=== PATIENT | male | born 1970 | race Caucasian/White ===

== ENCOUNTER 2024-10-11 19:42 | Inpatient (IN) | payer MEDICAID, OTHER ==
--- NOTE | 2024-10-11 20:54 | ED ---
General Adult HPI - General Source: patient, police, RN notes reviewed, old records reviewed Mode of arrival: ambulatory Limitations: no limitations <Herson Lieberman - Last Filed: 10/11/24 22:59> <Lissette Jorgensen - Last Filed: 10/12/24 05:04> - General Chief complaint: Psychiatric Symptoms Stated complaint: Petition-Suicidal Time Seen by Provider: 10/11/24 20:35 - History of Present Illness Initial comments: Patient is a 54-year-old male who presents emergency department complaining of suicidal ideations. Patient was petitioned by police. Petition states "elaina stated that he has suicidal thoughts due to the multiple recent deaths in his family. Elaina also stated he has not eaten in 5 days and struggles to sleep." Patient does endorse suicidal ideations. Has no other acute complaints. Was previously on medications however stopped taking all of them. Denies any alcohol abuse. Denies any drug abuse. Presents for further evaluation at this time. Has no other acute complaints at this time. (Herson Lieberman) - Related Data Home Medications Medication Instructions Recorded Confirmed No Known Home Medications 10/11/24 10/11/24 Allergies Allergy/AdvReac Type Severity Reaction Status Date / Time No Known Allergies Allergy Verified 10/11/24 20:54 Review of Systems ROS Other: All systems not noted in ROS Statement are negative. <Herson Lieberman - Last Filed: 10/11/24 22:59> ROS Other: All systems not noted in ROS Statement are negative. <Lissette Jorgensen - Last Filed: 10/12/24 05:04> ROS Statement: Those systems with pertinent positive or pertinent negative responses have been documented in the HPI. Review of Systems: CONST: Denies fever EYES: Denies blurry vision ENT: Denies nasal congestion C/V: Denies Chest pain RESP: Denies shortness of breath GI: Denies abdominal pain : Denies dysuria SKIN: Denies rash. MSK: Denies joint pain. NEURO: Denies headache (Herson Lieberman) Past Medical History Past Medical History: No Reported History History of Any Multi-Drug Resistant Organisms: None Reported Past Surgical History: No Surgical Hx Reported Past Psychological History: No Psychological Hx Reported Smoking Status: Current every day smoker Past Alcohol Use History: None Reported Past Drug Use History: Marijuana, Opiates <Herson Lieberman - Last Filed: 10/11/24 22:59> General Exam Limitations: no limitations <MioHerson - Last Filed: 10/11/24 22:59> - General Exam Comments Initial Comments: General: Appears in no acute distress. HEAD: Normal with no signs of head trauma. EYES: EOMI. ENT: Hearing grossly intact. RESPIRATORY: No respiratory distress. C/V: Regular rate and rhythm. ABD: Abdomen is nondistended. EXT: No obvious deformity. SKIN: No rashes or lesions observed on exposed skin. NEURO: Alert and oriented. (MioHerson) Course Vital Signs 10/11/24 19:51 Temperature 98.4 F Pulse Rate 94 Respiratory 16 Rate Blood Pressure 136/88 O2 Sat by Pulse 99 Oximetry Procedures - Restraint - Face to Face Restraint Occurrence 1 Patient's Immediate Situation: Endangers self safety, Endangers others' safety, Endangers staff safety, Violent behavior Patient's Reaction to the Intervention: Aggressive, Combative, Resistive to care Patient's Medical & Behavioral Condition: Agitated, Manic Need to Continue or Terminate Restraint or Seclusion: Continue Face to Face Eval of Restraint Date: 10/12/24 Face to Face Eval of Restraint Time: 04:35 <Lissette Jorgensen - Last Filed: 10/12/24 05:04> Medical Decision Making - Lab Data Result diagrams: 10/11/24 21:50 10/11/24 21:50 <MioHerson - Last Filed: 10/11/24 22:59> - Lab Data Result diagrams: 10/11/24 21:50 10/11/24 21:50 <Lissette Jorgensen - Last Filed: 10/12/24 05:04> - Medical Decision Making Was pt. sent in by a medical professional or institution (, PA, AUTO DISMANTLER, urgent care, hospital, or correction...) When possible be specific @ -No Did you speak to anyone other than the patient for history (EMS, parent, family, police, friend...)? What history was obtained from this source @ -No Did you review nursing and triage notes (agree or disagree)? Why? @ -I reviewed and agree with nursing and triage notes Were old charts reviewed (outside hosp., previous admission, EMS record, old EKG, old radiological studies, urgent care reports/EKG's, correction records)? Report findings @ -Reviewed petition provided by police regarding patient suicidal thoughts. Differential Diagnosis (chest pain, altered mental status, abdominal pain women, abdominal pain men, vaginal bleeding, weakness, fever, dyspnea, syncope, headache, dizziness, GI bleed, back pain, seizure, CVA, palpatations, mental health, musculoskeletal)? @ -Differential Mental Health Depression, anxiety, bipolar, psychosis, schizophrenia, borderline personality, situational depression, adjustment disorder, behavioral disorder, brain tumor, malingering, substance abuse, encephalopathy, medication reaction, dementia, hypothyroidism, degenerative neurologic disorder, lupus.... This is not meant to be all-inclusive list EKG interpreted by me (3pts min.). @ -None done X-rays interpreted by me (1pt min.). @ -None done CT interpreted by me (1pt min.). @ -None done U/S interpreted by me (1pt. min.). @ -None done What testing was considered but not performed or refused? (CT, X-rays, U/S, labs)? Why? @ -None What meds were considered but not given or refused? Why? @ -None Did you discuss the management of the patient with other professionals (professionals i.e. , PA, AUTO DISMANTLER, lab, RT, psych nurse, social scientist, nuclear engineering technician, teacher, learning and development officer, case operator)? Give summary @ -No Was smoking cessation discussed for >3mins.? @ -No Was critical care preformed (if so, how long)? @ -No Were there social determinants of health that impacted care today? How? (Homelessness, low income, unemployed, alcoholism, drug addiction, transportation, low edu. Level, literacy, decrease access to med. care, senior living, rehab)? @ -No Was there de-escalation of care discussed even if they declined (Discuss DNR or withdrawal of care, Hospice)? DNR status @ -No What co-morbidities impacted this encounter? (DM, HTN, Smoking, COPD, CAD, Cancer, CVA, ARF, Chemo, Hep., AIDS, mental health diagnosis, sleep apnea, morbid obesity)? @ -None Was patient admitted / discharged? Hospital course, mention meds given and route, prescriptions, significant lab abnormalities, going to OR and other pertinent info. @ -Patient presents with suicidal ideation with a plan to hang himself. Denies any acute complaints at this time. Presents for further evaluation of mental health evaluation. Patient was petitioned by police. Vital signs are within acceptable limits. BAT is 0. UDS is pending. COVID swab obtained. At this time, patient is medically cleared for evaluation by psychiatry. Disposition pending psychiatric evaluation. EPS notified of the consult. Suicide precautions placed. Sitter was ordered. EPS evaluated patient determined that he does meet inpatient criteria. Recommended admission for psychiatric care. Patient does require transfer for inpatient psych. Clinical certificate completed by myself. Laboratory studies ordered for the patient returned unremarkable except for positive cocaine and marijuana on the UDS. Patient is pending placement. Undiagnosed new problem with uncertain prognosis? @ -No Drug Therapy requiring intensive monitoring for toxicity (Heparin, Nitro, Insulin, Cardizem)? @ -No Were any procedures done? @ -No Diagnosis/symptom? @ -Suicidal ideations, suicide plan Acute, or Chronic, or Acute on Chronic? @ -Acute Uncomplicated (without systemic symptoms) or Complicated (systemic symptoms)? @ -Complicated Side effects of treatment? @ -None Exacerbation, Progression, or Severe Exacerbation] @ -No Poses a threat to life or bodily function? @ -Yes (Herson Lieberman) - Lab Data Lab Results 10/11/24 10/11/24 10/11/24 Range/Units 20:42 20:42 21:38 WBC (3.8-10.6) k/uL RBC (4.30-5.90) m/uL Hgb (13.0-17.5) gm/dL Hct (39.0-53.0) % MCV (80.0-100.0) fL MCH (25.0-35.0) pg MCHC (31.0-37.0) g/dL RDW (11.5-15.5) % Plt Count (150-450) k/uL MPV Neutrophils % % Lymphocytes % % Monocytes % % Eosinophils % % Basophils % % Neutrophils # (1.3-7.7) k/uL Lymphocytes # (1.0-4.8) k/uL Monocytes # (0-1.0) k/uL Eosinophils # (0-0.7) k/uL Basophils # (0-0.2) k/uL Sodium (137-145) mmol/L Potassium (3.5-5.1) mmol/L Chloride (98-107) mmol/L Carbon Dioxide (22-30) mmol/L Anion Gap mmol/L BUN (9-20) mg/dL Creatinine (0.66-1.25) mg/dL Est GFR (CKD-EPI)AfAm (>60 ml/min/1.73 sqM) Est GFR (CKD-EPI)NonAf (>60 ml/min/1.73 sqM) Glucose (74-99) mg/dL Calcium (8.4-10.2) mg/dL Total Bilirubin (0.2-1.3) mg/dL AST (17-59) U/L ALT (4-49) U/L Alkaline Phosphatase (38-126) U/L Total Protein (6.3-8.2) g/dL Albumin (3.5-5.0) g/dL Urine Color Colorless Urine Appearance Clear (Clear) Urine pH 6.5 (5.0-8.0) Ur Specific [place] 1.002 (1.001-1.035) Urine Protein Negative (Negative) Urine Glucose (UA) Negative (Negative) Urine Ketones Negative (Negative) Urine Blood Negative (Negative) Urine Nitrite Negative (Negative) Urine Bilirubin Negative (Negative) Urine Urobilinogen <2.0 (<2.0) mg/dL Ur Leukocyte Esterase Negative (Negative) Urine Opiates Screen Not Detected (NotDetected) Ur Oxycodone Screen Not Detected (NotDetected) Urine Methadone Screen Not Detected (NotDetected) Ur Barbiturates Screen Not Detected (NotDetected) U Tricyclic Antidepress Not Detected (NotDetected) Ur Phencyclidine Scrn Not Detected (NotDetected) Ur Amphetamines Screen Not Detected (NotDetected) U Methamphetamines Scrn Not Detected (NotDetected) U Benzodiazepines Scrn Not Detected (NotDetected) Urine Cocaine Screen Detected H (NotDetected) U Marijuana (THC) Screen Detected H (NotDetected) SARS-CoV-2 (PCR) Not Detected (Not Detectd) 10/11/24 10/11/24 Range/Units 21:50 21:50 WBC 9.0 (3.8-10.6) k/uL RBC 5.12 (4.30-5.90) m/uL Hgb 15.3 (13.0-17.5) gm/dL Hct 46.7 (39.0-53.0) % MCV 91.1 (80.0-100.0) fL MCH 29.8 (25.0-35.0) pg MCHC 32.7 (31.0-37.0) g/dL RDW 12.6 (11.5-15.5) % Plt Count 375 (150-450) k/uL MPV 9.1 Neutrophils % 69 % Lymphocytes % 21 % Monocytes % 6 % Eosinophils % 2 % Basophils % 1 % Neutrophils # 6.2 (1.3-7.7) k/uL Lymphocytes # 1.9 (1.0-4.8) k/uL Monocytes # 0.5 (0-1.0) k/uL Eosinophils # 0.2 (0-0.7) k/uL Basophils # 0.1 (0-0.2) k/uL Sodium 140 (137-145) mmol/L Potassium 3.8 (3.5-5.1) mmol/L Chloride 104 (98-107) mmol/L Carbon Dioxide 24 (22-30) mmol/L Anion Gap 12 mmol/L BUN 7 L (9-20) mg/dL Creatinine 1.03 (0.66-1.25) mg/dL Est GFR (CKD-EPI)AfAm >90 (>60 ml/min/1.73 sqM) Est GFR (CKD-EPI)NonAf 82 (>60 ml/min/1.73 sqM) Glucose 110 H (74-99) mg/dL Calcium 10.4 H (8.4-10.2) mg/dL Total Bilirubin 0.5 (0.2-1.3) mg/dL AST 20 (17-59) U/L ALT 18 (4-49) U/L Alkaline Phosphatase 128 H (38-126) U/L Total Protein 8.3 H (6.3-8.2) g/dL Albumin 4.8 (3.5-5.0) g/dL Urine Color Urine Appearance (Clear) Urine pH (5.0-8.0) Ur Specific [place] (1.001-1.035) Urine Protein (Negative) Urine Glucose (UA) (Negative) Urine Ketones (Negative) Urine Blood (Negative) Urine Nitrite (Negative) Urine Bilirubin (Negative) Urine Urobilinogen (<2.0) mg/dL Ur Leukocyte Esterase (Negative) Urine Opiates Screen (NotDetected) Ur Oxycodone Screen (NotDetected) Urine Methadone Screen (NotDetected) Ur Barbiturates Screen (NotDetected) U Tricyclic Antidepress (NotDetected) Ur Phencyclidine Scrn (NotDetected) Ur Amphetamines Screen (NotDetected) U Methamphetamines Scrn (NotDetected) U Benzodiazepines Scrn (NotDetected) Urine Cocaine Screen (NotDetected) U Marijuana (THC) Screen (NotDetected) SARS-CoV-2 (PCR) (Not Detectd) Disposition <Herson Lieberman - Last Filed: 10/11/24 22:59> <Lissette Jorgensen - Last Filed: 10/12/24 05:04> Clinical Impression: Suicidal ideation, Planning to commit suicide Disposition: TRANSFER TO PSYCH HOSP/UNIT Condition: Stable Referrals: None,Stated [Primary Care Provider] - 1-2 days
[2024-10-11 21:04] LABS: Amphetamine Screen,Urine Not Detected (NotDetected); Barbiturate Screen,Urine Not Detected (NotDetected); Benzodiazepines Screen,Urine Not Detected (NotDetected); Cocaine Screen,Urine Detected (NotDetected); Methadone Screen, Urine Not Detected (NotDetected); Opiate Screen,Urine Not Detected (NotDetected); Oxycodone Screen, Urine Not Detected (NotDetected); Phencyclidine Screen,Urine Not Detected (NotDetected); Tricyclic Antidepressant,Urine Not Detected (NotDetected); Urn Cannabinoid Scrn Detected (NotDetected)
[2024-10-11 21:58] LABS: Basophils # (A) 0.1 k/uL (0-0.2); Basophils % (A) 1 %; Eosinophils # (A) 0.2 k/uL (0-0.7); Eosinophils % (A) 2 %; HCT 46.7 % (39.0-53.0); HGB 15.3 gm/dL (13.0-17.5); Lymphocytes # (A) 1.9 k/uL (1.0-4.8); Lymphocytes % (A) 21 %; MCH 29.8 pg (25.0-35.0); MCHC 32.7 g/dL (31.0-37.0); MCV 91.1 fL (80.0-100.0); Mean Platelet Volume 9.1; Monocytes # (A) 0.5 k/uL (0-1.0); Monocytes % (A) 6 %; Neutrophils # (A) 6.2 k/uL (1.3-7.7); Neutrophils % (A) 69 %; Platelet Count 375 k/uL (150-450); RBC 5.12 m/uL (4.30-5.90); RDW 12.6 % (11.5-15.5)
[2024-10-11 22:07] LABS: Appearance,Urine Clear (Clear); Bilirubin,Urine Negative (Negative); Blood,Urine Negative (Negative); Color,Urine Colorless; Glucose,Urine (UA) Negative (Negative); Ketones,Urine Negative (Negative); Leukocyte Esterase,Urine Negative (Negative); Nitrite,Urine Negative (Negative); PH, Urine 6.5 (5.0-8.0); Protein,Urine Negative (Negative); Specific Gravity,Urine 1.002 (1.001-1.035); Urobilinogen,Urine <2.0 mg/dL (<2.0)
[2024-10-11 22:08] LABS: ALT 18 U/L (4-49); AST 20 U/L (17-59); African American GFR (CKD) >90 (>60 ml/min/1.73 sqM); Albumin 4.8 g/dL (3.5-5.0); Alkaline Phosphatase 128 U/L (38-126); Anion Gap 12 mmol/L; Blood Urea Nitrogen 7 mg/dL (9-20); Calcium 10.4 mg/dL (8.4-10.2); Carbon Dioxide 24 mmol/L (22-30); Chloride 104 mmol/L (98-107); Glucose 110 mg/dL (74-99); Non-African American GFR(CKD) 82 (>60 ml/min/1.73 sqM); Potassium 3.8 mmol/L (3.5-5.1); Sodium 140 mmol/L (137-145); Total Bilirubin 0.5 mg/dL (0.2-1.3); Total Protein 8.3 g/dL (6.3-8.2)
[2024-10-11] MEDS: LORazepam 1 MG TAB PO STA (22:31)
[2024-10-12] MEDS: diphenhydrAMINE 50 MG CAP PO STA (01:12)
[2024-10-12] MEDS: LORazepam 1 MG TAB PO STA (02:50)
[2024-10-12] MEDS: ZIPRASIDONE 20 MG VIAL IM STA (04:36)
[2024-10-12] MEDS ORDERED: HALOPERIDOL LACTATE 5 MG/ML 1 ML VIAL IM PRN (13:22)
[2024-10-12] MEDS ORDERED: MAG HYDROX/AL HYDROX/SIMETH 355 ML BOTTLE PO PRN (13:22)
[2024-10-12] MEDS ORDERED: MAGNESIUM HYDROXIDE 2,400 MG/30 ML CUP PO PRN (13:22)
[2024-10-12] MEDS ORDERED: LORazepam 2 MG/ML INJ IM PRN (13:22)
[2024-10-13] MEDS: IBUPROFEN 600 MG TAB PO PRN (01:51)
[2024-10-13] MEDS: haloperidoL 5 MG TAB PO PRN (01:51)
[2024-10-13 10:09] LABS: ALT 15 U/L (4-49); AST 18 U/L (17-59); Albumin 4.2 g/dL (3.5-5.0); Alkaline Phosphatase 91 U/L (38-126); Bilirubin, Delta 0.2 mg/dL (0.0-0.2); Bilirubin,Unconjugated 0.3 mg/dL (0.0-1.1); Total Bilirubin 0.5 mg/dL (0.2-1.3); Total Protein 7.2 g/dL (6.3-8.2)
[2024-10-13] MEDS: NICOTINE 14MG/24HR PATCH TRANSDERM SCH (11:35)
[2024-10-13 13:21] VITALS: BMI 20.7
[2024-10-13] MEDS: SERTRALINE 50 MG TAB PO SCH (13:27)
--- NOTE | 2024-10-13 14:08 | P.HP ---
Psychiatric H&P - . H&P Date: 10/13/24 History & Physical: Allergies Allergy/AdvReac Type Severity Reaction Status Date / Time No Known Allergies Allergy Verified 10/11/24 20:54 Vital Signs Temp 98.6 F 10/12/24 13:55 Pulse 105 H 10/12/24 13:55 Resp 18 10/12/24 13:55 BP 174/88 10/12/24 13:55 Pulse Ox 97 10/12/24 13:55 FiO2 Intake & Output 10/12/24 10/13/24 10/13/24 18:59 06:59 18:59 Weight 58.332 kg Laboratory Last Values WBC 9.0 k/uL (3.8-10.6) 10/11/24 21:50 RBC 5.12 m/uL (4.30-5.90) 10/11/24 21:50 Hgb 15.3 gm/dL (13.0-17.5) 10/11/24 21:50 Hct 46.7 % (39.0-53.0) 10/11/24 21:50 MCV 91.1 fL (80.0-100.0) 10/11/24 21:50 MCH 29.8 pg (25.0-35.0) 10/11/24 21:50 MCHC 32.7 g/dL (31.0-37.0) 10/11/24 21:50 RDW 12.6 % (11.5-15.5) 10/11/24 21:50 Plt Count 375 k/uL (150-450) 10/11/24 21:50 MPV 9.1 10/11/24 21:50 Neutrophils % 69 % 10/11/24 21:50 Lymphocytes % 21 % 10/11/24 21:50 Monocytes % 6 % 10/11/24 21:50 Eosinophils % 2 % 10/11/24 21:50 Basophils % 1 % 10/11/24 21:50 Neutrophils # 6.2 k/uL (1.3-7.7) 10/11/24 21:50 Lymphocytes # 1.9 k/uL (1.0-4.8) 10/11/24 21:50 Monocytes # 0.5 k/uL (0-1.0) 10/11/24 21:50 Eosinophils # 0.2 k/uL (0-0.7) 10/11/24 21:50 Basophils # 0.1 k/uL (0-0.2) 10/11/24 21:50 Sodium 140 mmol/L (137-145) 10/11/24 21:50 Potassium 3.8 mmol/L (3.5-5.1) 10/11/24 21:50 Chloride 104 mmol/L (98-107) 10/11/24 21:50 Carbon Dioxide 24 mmol/L (22-30) 10/11/24 21:50 Anion Gap 12 mmol/L 10/11/24 21:50 BUN 7 mg/dL (9-20) L 10/11/24 21:50 Creatinine 1.03 mg/dL (0.66-1.25) 10/11/24 21:50 Est GFR (CKD-EPI)AfAm >90 (>60 ml/min/1.73 sqM) 10/11/24 21:50 Est GFR (CKD-EPI)NonAf 82 (>60 ml/min/1.73 sqM) 10/11/24 21:50 Glucose 110 mg/dL (74-99) H 10/11/24 21:50 Calcium 10.4 mg/dL (8.4-10.2) H 10/11/24 21:50 Total Bilirubin 0.5 mg/dL (0.2-1.3) 10/13/24 09:19 Conjugated Bilirubin 0.0 mg/dL (0.0-0.3) 10/13/24 09:19 Unconjugated Bilirubin 0.3 mg/dL (0.0-1.1) 10/13/24 09:19 Delta Bilirubin 0.2 mg/dL (0.0-0.2) 10/13/24 09:19 AST 18 U/L (17-59) 10/13/24 09:19 ALT 15 U/L (4-49) 10/13/24 09:19 Alkaline Phosphatase 91 U/L (38-126) 10/13/24 09:19 Total Protein 7.2 g/dL (6.3-8.2) 10/13/24 09:19 Albumin 4.2 g/dL (3.5-5.0) 10/13/24 09:19 TSH 0.445 mIU/L (0.465-4.680) L 10/13/24 09:19 Urine Color Colorless 10/11/24 21:38 Urine Appearance Clear (Clear) 10/11/24 21:38 Urine pH 6.5 (5.0-8.0) 10/11/24 21:38 Ur Specific [place] 1.002 (1.001-1.035) 10/11/24 21:38 Urine Protein Negative (Negative) 10/11/24 21:38 Urine Glucose (UA) Negative (Negative) 10/11/24 21: Urine Ketones Negative (Negative) 10/11/24 21: Urine Blood Negative (Negative) 10/11/24 21: Urine Nitrite Negative (Negative) 10/11/24 21: Urine Bilirubin Negative (Negative) 10/11/24 21: Urine Urobilinogen <2.0 mg/dL (<2.0) 10/11/24 21:38 Ur Leukocyte Esterase Negative (Negative) 10/11/24 21:38 Urine Opiates Screen Not Detected (NotDetected) 10/11/24 20:42 Ur Oxycodone Screen Not Detected (NotDetected) 10/11/24 20:42 Urine Methadone Screen Not Detected (NotDetected) 10/11/24 20:42 Ur Barbiturates Screen Not Detected (NotDetected) 10/11/24 20:42 U Tricyclic Antidepress Not Detected (NotDetected) 10/11/24 20:42 Ur Phencyclidine Scrn Not Detected (NotDetected) 10/11/24 20:42 Ur Amphetamines Screen Not Detected (NotDetected) 10/11/24 20:42 U Methamphetamines Scrn Not Detected (NotDetected) 10/11/24 20:42 U Benzodiazepines Scrn Not Detected (NotDetected) 10/11/24 20:42 Urine Cocaine Screen Detected (NotDetected) H 10/11/24 20:42 U Marijuana (THC) Screen Detected (NotDetected) H 10/11/24 20:42 SARS-CoV-2 (PCR) Not Detected (Not Detectd) 10/11/24 20:42 10/13/24 12:40 IDENTIFYING DATA: Patient is a 54-year-old male, he is , homeless, has 4 kids HPI: Patient presented to the hospital yesterday for psychiatric evaluation on a petition and certificate. According to EPS report "Patient brought self to ER per triage related to suicidal ideation with a plan to hang himself. Patient assessed in ER14 from [id number]. Patient states "I have nothing to live for they are all , I'm going to kill the rest of them". Patient verbalizes his mother and fiance within the last year and he has been increasingly down. Patient denies suicidal ideations to technical proposal writer at time of assessment. Patient verbalizes homicidal ideations towards his stepfather, son, and daughter. Patient refused to give technical proposal writer names at this time. Patient states "My son killed my granddaughter when she was 1 years old", He states his daughter "Wants me so I'm going to kill her first", then states he wants to kill his step father "because he's a scar". Patient verbalizes no alcohol use in 10 years. Patient verbalizes using marijuana, and denies all other substance use. Patient denies legal hx. Patient verbalizes not eating x1 month, states "I've eaten 5 small meals all month". Patient states he sleeps one hour per night. Patient appears disheveled and unkept. Patient verbalizes auditory and visual hallucinations of "my fiance and mother" states they are both but he still hears and sees his fiance and sees his mother but "we don't talk". Patient petitioned by police related to suicidal ideation with a plan to hang himself." Patient was seen today for psychiatric evaluation. Patient was fairly evasive, manipulative at times during conversation. States that he came from [place] about 5 or 6 weeks ago to stay with a friend. Claims that "his roommate and him started using cocaine" and states that he did not want to be a part of it. He claims that he wanted to get to [facility] however he did not know how. He claims that he called the police due to feeling "unsafe". He claims that he was not feeling suicidal however wanted to come to the hospital. He claims that he did not want to return back to the house, was feeling depressed anxious. Claims that his father is a "scar" and has thoughts of harming him however did not state how he is going to do this. He states that "everyone has access to guns" when asked about guns and weapons. Claims that his sleep is been poor appetite has been fair. He was fairly evasive, and guarded. Patient denies any suicidal intent or plan. At this time patient denies any auditory or visual hallucinations. Patient denies any flight of ideas racing thoughts and increased in goal directed behavior. Patient admits to using fentanyl recently. Claims that he smokes marijuana regularly. He was positive for cocaine however claims that it was "probably in the fentanyl". He claims that he also vapes nicotine. PAST PSYCHIATRIC HISTORY: Patient has a history of depression, polysubstance abuse. Patient denies being on any psychiatric medications. Claims that he was previously on Seroquel Adderall Wellbutrin and Xanax in the past. States that he was admitted 2 times in the past for psychiatric reasons about a year and a half ago in [facility]. Patient denies any psychiatric outpatient follow- up. Claims that about 5 years ago he attempted to cut his wrists in a suicide attempt PMH: as per ER note ALLERGIES: as per EMR CHEMICAL DEPENDENCY HISTORY: as per HPI FAMILY PSYCHIATRIC/SUBSTANCE USE HISTORY: Denies SOCIAL HISTORY: Patient was born and raised in [facility]. Claims that he completed high school, states that he is he has 4 kids, he is homeless currently. States that he has been in usp and usp in the past for assault charges about 10 years ago.. MENTAL STATUS EXAM: General Appearance: Patient appears to be short in stature, thin, several tattoos including 1 on his face. Stated age is alert, guarded and manipulative. Patient appears to have poor hygiene and grooming. Behavior: Patient is seated without any agitated behavior. Evasive, guarded Speech: Patient's speech is fluent and nonpressured. Monotone concrete Mood/Affect: Patient reports their mood is depressed anxious, affect is congruent and constricted. Suicidality/Homicidality: Admits to homicidal ideations towards his father, and is not forthcoming with a specific plan. Evasive about guns and weapons. Denies any suicidal ideations intent or plan. Perceptions: Patient denies any visual hallucinations and denies any auditory hallucinations Though content/process: There is no evidence of any delusional thought content and thought process is linear and goal-directed. Sheldon, poverty of content Memory and concentration: AOX3, grossly intact for the purposes of this session. Can spell "WORLD" backwards Judgment and insight: Poor STRENGTHS/WEAKNESSES: strength is that patient is resilient. Weakness is that patient has poor judgment and is impulsive INTELLECT: Average IMPRESSIONS: Depressive disorder unspecified Cocaine use disorder Cannabis use disorder Nicotine dependence Likely antisocial personality disorder PLAN: -Patient is admitted under voluntary status to [facility] for stabilization of psychiatric symptoms and safety. Patient has signed adult voluntary form and medication consent and is placed in patient's chart. -Medications : Seroquel 100 mg nightly for mood stabilization/sleep, Zoloft 50 mg daily for mood/anxiety -Ativan and Haldol PRN for agitation/aggression -Patient was counselled on substance abuse and desired to cut back on use -Patient was informed of the risks, benefits and side effects of the medication and patient verbally consented to taking the medications. Patient signed med consent form and was placed in chart. -Internal Medicine consult to perform medical evaluation and physical. -NRT -nicotine patch -SW on board for discharge planning. Encourage patient to participate in groups to work on coping skills. Will offer patient rehab, make arrangements for Jens 10/13/24 14:07
--- NOTE | 2024-10-13 17:42 | P.MDCNMH ---
History of Present Illness H&P Date: 10/13/24 Chief Complaint: Medical evaluation 54-year-old male with no reported medical history, takes no medications, active smoker, occasional recreational drugs presented for evaluation of mental health. Medicine was consulted for medical management. Patient has no complaints at this time. He says that overall he has been very healthy and has never had any medical issues or need to take any medications. Review of his vitals demonstrated patient who is likely in stage I hypertension with a blood pressure of 138/76, 99% on room air, 96 heart rate. CBC is unremarkable. Basic metabolic panel is unremarkable. Liver function test show elevated alkaline phosphatase is 128. TSH is 0.445. Urinalysis is unremarkable. Urine tox urine is positive for cocaine, marijuana. COVID was negative. Gen: In NAD, non-toxic HEENT: normocephalic, atraumatic, hearing acuity is intant, mucous membranes moist CVS: perfusing all extremities well, no pitting edema, Respiratory: symmetric chest expansion, no accessory muscle use, GI: soft, NTTP, ND, : no suprapubic tenderness, no CVA tenderness MSK/Derm: no rashes, cyanosis Neuro: CN II-XII intact, no motor weakness, Psych: cooperative, euthymic mood, judgment and insight is intact Assessment/plan: Hypertension, stage I -Normally would recommend the initiation of single antihypertensive agent such as amlodipine or lisinopril, however, I defer this to his PCP at this time as it is is not urgent and he needs to establish care in order to follow-up with medication compliance Low TSH -Ordered reflex free T4, touch base with our group if this is elevated or abnormal for further recommendations Thank you for this consult, presleep note for any questions or concerns. Past Medical History Past Medical History: No Reported History History of Any Multi-Drug Resistant Organisms: None Reported Past Surgical History: No Surgical Hx Reported Past Psychological History: No Psychological Hx Reported Smoking Status: Current every day smoker Past Alcohol Use History: None Reported Past Drug Use History: Cocaine, Marijuana, Opiates Medications and Allergies Home Medications Medication Instructions Recorded Confirmed Type No Known Home Medications 10/11/24 10/11/24 History Allergies Allergy/AdvReac Type Severity Reaction Status Date / Time No Known Allergies Allergy Verified 10/11/24 20:54 Physical Exam Osteopathic Statement: *. No significant issues noted on an osteopathic structural exam other than those noted in the History and Physical/Consult. Vitals: Intake and Output 10/13/24 10/13/24 10/13/24 06:59 14:59 22:59 Other: Weight 58.332 kg Cranial Nerve Examination - Cranial Nerves Cranial Nerve II- Optic: Intact Cranial Nerve III- Oculomotor: Intact Cranial Nerve IV- Trochlear: Intact Cranial Nerve V- Trigeminal: Intact Cranial Nerve - Abducens: Intact Cranial Nerve VII- Facial: Intact Cranial Nerve VIII- Auditory: Intact Cranial Nerve IX- Glossopharyngeal: Intact Cranial Nerve X- Vagus: Intact Cranial Nerve XI- Accessory: Intact Cranial Nerve XII- Hypoglossal: Intact Results CBC & Chem 7: 10/11/24 21:50 10/11/24 21:50 Labs: Abnormal Lab Results - Last 24 Hours (Table) 10/13/24 Range/Units 09:19 TSH 0.445 L (0.465-4.680) mIU/L
[2024-10-13] MEDS: QUEtiapine 100 MG TAB PO SCH (20:16)
[2024-10-13] MEDS: ACETAMINOPHEN TAB 325 MG TAB PO PRN (23:57)
[2024-10-14] MEDS: LORazepam 1 MG TAB PO PRN (04:19)
[2024-10-14 08:43] LABS: Chol/HDL Ratio 5.23 Ratio; LDL Cholesterol,Calculated 155.4 mg/dL (0.0-131.0)
[2024-10-14] MEDS: NICOTINE GUM (POLACRILEX) 2 MG GUM BUCCAL PRN (10:09)
--- NOTE | 2024-10-14 10:50 | P.PN ---
Progress Note - Text Progress Note Date: 10/14/24 Interval history: Patient was seen wandering the hallways and was directable and agreeable to s peak with verse writer. He appears to have improvement in hygiene and grooming today. States that he had difficulty sleeping last night and was feeling restless. States that he only slept about 1 or 2 hours late last night. Claims that he feels his mood and anxiety are mildly improving since yesterday. We spoke about other options besides Seroquel and he was agreeable to try Zyprexa tonight. At this time patient denies any suicidal or homicidal ideations intent or plan. Denies any Auditory or visual hallucinations. Patient denies any side effects from the medications and has been compliant with meds. Mental status exam: General Appearance: Patient appears to be short in stature, tattoos, stated age is alert, directable, and cooperative. Behavior: No agitated behavior. Patient is calm and directable less manipulative today Speech: Patient's speech is fluent and nonpressured. Mood/Affect: Mood is improving mildly, affect is congruent and constricted. Suicidality/Homicidality: Patient denies having any suicidal or homicidal ideation intent or plan. Perceptions: Patient denies any auditory or visual hallucinations. Though content/process: There is no evidence of any delusional thought content and thought process is linear and goal-directed. Focused on his symptoms Memory and concentration: AOX3, grossly intact for the purposes of this session Judgment and insight: improving mildly Assessment/Plan: Continue with current diagnosis. Patient continues to meet criteria for inpatient psychiatric admission for symptom stabilization and safety. Patient will be maintained on current psychotropic medication regimen, discontinue Seroquel and replace with Zyprexa for tonight. Monitor for medication compliance and for any psychotropic medication side effects. Will continue to monitor ongoing response to treatment. Encouraged participation in milieu.
[2024-10-14] MEDS: OLANZapine 5 MG TAB PO SCH (20:07)
[2024-10-14] MEDS: traZODone HCL 100 MG TAB PO PRN (22:40)
--- NOTE | 2024-10-15 12:08 | P.PN ---
Progress Note - Text Progress Note Date: 10/15/24 Interval history: Patient was seen in his room this morning was agreeable to speak to chief writer. He claims that he had a difficult time sleeping last night after taking the Zyprexa and also needed trazodone and only got about 2 or 3 hours of sleep. He was agreeable to try higher dose of the medications tonight to help with sleep. Claims that he is doing well besides that, claims that his anxiety mood is improving. Claims that he would like to go to [facility] tomorrow for rehab if they are can accept him and he has a ride. Claims that he is try to go to some groups. Has been eating fairly. At this time patient denies any suicidal or homicidal ideations intent or plan. Denies any Auditory or visual hallucinations. Patient denies any side effects from the medications and has been compliant with meds. Mental status exam: General Appearance: Patient appears to be short in stature, tattoos, stated age is alert, directable, and cooperative. Behavior: No agitated behavior. Patient is calm and directable more cooperative today Speech: Patient's speech is fluent and nonpressured. Mood/Affect: Mood is improving mildly, affect is congruent and constricted. Improving Suicidality/Homicidality: Patient denies having any suicidal or homicidal ideation intent or plan. Perceptions: Patient denies any auditory or visual hallucinations. Though content/process: There is no evidence of any delusional thought content and thought process is linear and goal-directed. Focused on discharge Memory and concentration: AOX3, grossly intact for the purposes of this session Judgment and insight: improving mildly Assessment/Plan: Continue with current diagnosis. Patient continues to meet criteria for inpatient psychiatric admission for symptom stabilization and safety. Patient will be maintained on current psychotropic medication regimen, with the exception of increasing Zyprexa to 10 mg nightly. Will add trazodone 150 mg prn nightly for insomnia. Monitor for medication compliance and for any psychotropic medication side effects. Will continue to monitor ongoing response to treatment. Encouraged participation in milieu. Likely discharge tomorrow to rehab, he will be going to [place].
[2024-10-15] MEDS: traZODone HCL 50 MG TAB PO PRN (22:17)
[2024-10-16 07:06] VITALS: BP 148/73; PULSE 81; RESP 16; TEMP 97.6
--- NOTE | 2024-10-16 11:41 | P.DS ---
Providers Date of admission: 10/12/24 13:18 Expected date of discharge: 10/16/24 Attending physician: Sridhar Middleton MD Consults: 10/12/24 13:22 Consult Physician Routine Consulting Provider: Teena Brenner Consult Reason/Comments: History and Physical New Admission Do you want consulting provider notified?: Yes Primary care physician: Stated None - Discharge Diagnosis(es) (1) Depressive disorder Current Visit: Yes Status: Acute Priority: High (2) Cocaine use disorder Current Visit: Yes Status: Acute Priority: High (3) Cannabis use disorder Current Visit: Yes Status: Acute Priority: Medium (4) Nicotine dependence Current Visit: Yes Status: Acute Priority: Low (5) Personality disorder Current Visit: Yes Status: Acute Priority: Medium Hospital Course: Admission HPI: Admission note was completed by commercial underwriter "Patient is a 54-year-old male, he is , homeless, has 4 kids. Patient presented to the hospital yesterday for psychiatric evaluation on a petition and certificate. According to EPS report "Patient brought self to ER per triage related to suicidal ideation with a plan to hang himself. Patient assessed in ER14 from [id number]. Patient states "I have nothing to live for they are all , I'm going to kill the rest of them". Patient verbalizes his mother and fiance within the last year and he has been increasingly down. Patient denies suicidal ideations to commercial underwriter at time of assessment. Patient verbalizes homicidal ideations towards his stepfather, son, and daughter. Patient refused to give commercial underwriter names at this time. Patient states "My son killed my granddaughter when she was 1 years old", He states his daughter "Wants me so I'm going to kill her first", then states he wants to kill his step father "because he's a scar". Patient verbalizes no alcohol use in 10 years. Patient verbalizes using marijuana, and denies all other substance use. Patient denies legal hx. Patient verbalizes not eating x1 month, states "I've eaten 5 small meals all month". Patient states he sleeps one hour per night. Patient appears disheveled and unkept. Patient verbalizes auditory and visual hallucinations of "my fiance and mother" states they are both but he still hears and sees his fiance and sees his mother but "we don't talk". Patient petitioned by police related to suicidal ideation with a plan to hang himself." Patient was seen today for psychiatric evaluation. Patient was fairly evasive, manipulative at times during conversation. States that he came from [place] about 5 or 6 weeks ago to stay with a friend. Claims that "his roommate and him started using cocaine" and states that he did not want to be a part of it. He claims that he wanted to get to [facility] however he did not know how. He claims that he called the police due to feeling "unsafe". He claims that he was not feeling suicidal however wanted to come to the hospital. He claims that he did not want to return back to the house, was feeling depressed anxious. Claims that his father is a "scar" and has thoughts of harming him however did not state how he is going to do this. He states that "everyone has access to guns" when asked about guns and weapons. Claims that his sleep is been poor appetite has been fair. He was fairly evasive, and guarded. Patient denies any suicidal intent or plan. At this time patient denies any auditory or visual hallucinations. Patient denies any flight of ideas racing thoughts and increased in goal directed behavior. Patient admits to using fentanyl recently. Claims that he smokes marijuana regularly. He was positive for cocaine however claims that it was "probably in the fentanyl". He claims that he also vapes nicotine." Hospital course: Upon admission to the unit patient was directable and agreeable to commence treatment and signed adult voluntary form. Patient got along well with other patients on the unit and followed unit protocol. Patient was compliant with the medications and denied any side effects throughout hospital course. Patient was started on zyprexa increased to dose of 10 mg qhs for sleep/mood stabilization, Zoloft 50 mg daily for mood/anxiety. Trazodone 150 mg nightly as needed for insomnia. Patient spoke of his stressors and engaged in therapy both group and individual. Patient was also seen by medical team for history and physical exam. Throughout the course of the hospitalization patient gradually improved with regards to mood, anxiety, suicidal thoughts, sleep and returned back to their baseline level of functioning. On the day of discharge patient denied any suicidal or homicidal ideations intent or plan denied any auditory or visual hallucinations. Patient endorsed wanting to live for their health and sobriety. The patient denied any access to guns or weapons. Patient denied any paranoia and did not endorse any delusions. Patient does have a significant history of substance abuse and was counseled on abstaining from all substances including alcohol and marijuana. Patient ended up agreeing to inpatient [facility] rehab. Was excepted to [place] for inpatient substance rehab. Patient was also counseled on the medications and need for regular compliance and was encouraged to follow-up with their outpatient appointment for mental health and also for primary care. Mental status exam: General Appearance: Patient appears to be in stature, several tattoos, stated age is alert, pleasant, and cooperative. Patient is in no acute distress and has improved hygiene and grooming Behavior: Patient is calmly seated without any agitated behavior. Speech: Patient's speech is fluent and nonpressured. Mood/Affect: Patient reports their mood is "good", affect is congruent and euthymic. Suicidality/Homicidality: Patient denies having any suicidal or homicidal ideation intent or plan. Perceptions: Patient denies any auditory or visual hallucinations. Though content/process: There is no evidence of any delusional thought content and thought process is linear and goal-directed. More future oriented Memory and concentration: AOX3, grossly intact for the purposes of this session. Can spell "WORLD" backwards correctly. Judgment and insight: Chronically poor, however has improved with guarded prognosis Impression: Depressive disorder unspecified Cocaine use disorder Cannabis use disorder Personality disorder Nicotine dependence Plan: -Continue with discharge today as patient has improved and stabilized psychiatrically and is not currently an imminent threat to themself and/or others. Patient will remain at chronically elevated risk for harm to self and/or others due to their impulsivity and substance abuse. -Continue medications: Zyprexa 10 mg nightly for sleep/mood stabilization, Zoloft 50 mg daily for mood/anxiety, trazodone 150 mg nightly as needed for insomnia. -Patient was counseled on the need for medication compliance and appropriate follow-up at mental health and also primary care for medical issues. Patient verbalized understanding and agreed. -Social work to help coordinate patients discharge today with a ride to rehab. also to ensure safe home environment that guns/weapons are either removed from the home or locked away. Social work also to arrange for patients follow up appointments with [facility] for psychiatric care along with follow up with primary care provider. -Patient counseled on abstaining from recreational drugs and marijuana and alcohol. Was informed/educated on the adverse effects on their physical and mental health. Patient verbally agreed and understood. -Patient was instructed to return to the hospital or seek immediate medical care if their psychiatric or medical symptoms do worsen or reoccur. Allergies Allergy/AdvReac Type Severity Reaction Status Date / Time No Known Allergies Allergy Verified 10/11/24 20:54 Laboratory Results WBC 9.0 k/uL (3.8-10.6) 10/11/24 21:50 RBC 5.12 m/uL (4.30-5.90) 10/11/24 21:50 Hgb 15.3 gm/dL (13.0-17.5) 10/11/24 21:50 Hct 46.7 % (39.0-53.0) 10/11/24 21:50 MCV 91.1 fL (80.0-100.0) 10/11/24 21:50 MCH 29.8 pg (25.0-35.0) 10/11/24 21:50 MCHC 32.7 g/dL (31.0-37.0) 10/11/24 21:50 RDW 12.6 % (11.5-15.5) 10/11/24 21:50 Plt Count 375 k/uL (150-450) 10/11/24 21:50 MPV 9.1 10/11/24 21:50 Neutrophils % 69 % 10/11/24 21:50 Lymphocytes % 21 % 10/11/24 21:50 Monocytes % 6 % 10/11/24 21:50 Eosinophils % 2 % 10/11/24 21:50 Basophils % 1 % 10/11/24 21:50 Neutrophils # 6.2 k/uL (1.3-7.7) 10/11/24 21:50 Lymphocytes # 1.9 k/uL (1.0-4.8) 10/11/24 21:50 Monocytes # 0.5 k/uL (0-1.0) 10/11/24 21:50 Eosinophils # 0.2 k/uL (0-0.7) 10/11/24 21:50 Basophils # 0.1 k/uL (0-0.2) 10/11/24 21:50 Sodium 140 mmol/L (137-145) 10/11/24 21:50 Potassium 3.8 mmol/L (3.5-5.1) 10/11/24 21:50 Chloride 104 mmol/L (98-107) 10/11/24 21:50 Carbon Dioxide 24 mmol/L (22-30) 10/11/24 21:50 Anion Gap 12 mmol/L 10/11/24 21:50 BUN 7 mg/dL (9-20) L 10/11/24 21:50 Creatinine 1.03 mg/dL (0.66-1.25) 10/11/24 21:50 Est GFR (CKD-EPI)AfAm >90 (>60 ml/min/1.73 sqM) 10/11/24 21:50 Est GFR (CKD-EPI)NonAf 82 (>60 ml/min/1.73 sqM) 10/11/24 21:50 Glucose 110 mg/dL (74-99) H 10/11/24 21:[address] Glu mg/dL 126 mg/dL 10/13/24 09:19 Hemoglobin A1c 6.0 % (<=6.0) 10/13/24 09:19 Calcium 10.4 mg/dL (8.4-10.2) H 10/11/24 21:50 Total Bilirubin 0.5 mg/dL (0.2-1.3) 10/13/24 09:19 Conjugated Bilirubin 0.0 mg/dL (0.0-0.3) 10/13/24 09:19 Unconjugated Bilirubin 0.3 mg/dL (0.0-1.1) 10/13/24 09:19 Delta Bilirubin 0.2 mg/dL (0.0-0.2) 10/13/24 09:19 AST 18 U/L (17-59) 10/13/24 09:19 ALT 15 U/L (4-49) 10/13/24 09:19 Alkaline Phosphatase 91 U/L (38-126) 10/13/24 09:19 Total Protein 7.2 g/dL (6.3-8.2) 10/13/24 09:19 Albumin 4.2 g/dL (3.5-5.0) 10/13/24 09:19 Triglycerides 145.00 mg/dL (0.00-149.00) 10/13/24 09:19 Cholesterol 228.00 mg/dL (0.00-200.00) H 10/13/24 09:19 LDL Cholesterol, Calc 155.4 mg/dL (0.0-131.0) H 10/13/24 09:19 VLDL Cholesterol, Calc 29.00 mg/dL (5.00-40.00) 10/13/24 09:19 HDL Cholesterol 43.60 mg/dL (40.00-60.00) 10/13/24 09:19 Cholesterol/HDL Ratio 5.23 Ratio 10/13/24 09:19 TSH 0.445 mIU/L (0.465-4.680) L 10/13/24 09:19 Free T4 0.82 ng/dL (0.78-2.19) 10/14/24 09:57 Urine Color Colorless 10/11/24 21:38 Urine Appearance Clear (Clear) 10/11/24 21:38 Urine pH 6.5 (5.0-8.0) 10/11/24 21:38 Ur Specific [place] 1.002 (1.001-1.035) 10/11/24 21:38 Urine Protein Negative (Negative) 10/11/24 21:38 Urine Glucose (UA) Negative (Negative) 10/11/24 21:38 Urine Ketones Negative (Negative) 10/11/24 21:38 Urine Blood Negative (Negative) 10/11/24 21:38 Urine Nitrite Negative (Negative) 10/11/24 21:38 Urine Bilirubin Negative (Negative) 10/11/24 21:38 Urine Urobilinogen <2.0 mg/dL (<2.0) 10/11/24 21:38 Ur Leukocyte Esterase Negative (Negative) 10/11/24 21:38 Urine Opiates Screen Not Detected (NotDetected) 10/11/24 20:42 Ur Oxycodone Screen Not Detected (NotDetected) 10/11/24 20:42 Urine Methadone Screen Not Detected (NotDetected) 10/11/24 20:42 Ur Barbiturates Screen Not Detected (NotDetected) 10/11/24 20:42 U Tricyclic Antidepress Not Detected (NotDetected) 10/11/24 20:42 Ur Phencyclidine Scrn Not Detected (NotDetected) 10/11/24 20:42 Ur Amphetamines Screen Not Detected (NotDetected) 10/11/24 20:42 U Methamphetamines Scrn Not Detected (NotDetected) 10/11/24 20:42 U Benzodiazepines Scrn Not Detected (NotDetected) 10/11/24 20:42 Urine Cocaine Screen Detected (NotDetected) H 10/11/24 20:42 U Marijuana (THC) Screen Detected (NotDetected) H 10/11/24 20:42 SARS-CoV-2 (PCR) Not Detected (Not Detectd) 10/11/24 20:42 Vital Signs Temp 97.6 F 10/16/24 07:05 Pulse 81 10/16/24 07:05 Resp 16 10/16/24 07:05 BP 148/73 10/16/24 07:05 Pulse Ox 97 10/16/24 07:05 FiO2 Patient Condition at Discharge: Stable Plan - Discharge Summary Discharge Rx Participant: No New Discharge Prescriptions: New Nicotine 14Mg/24Hr Patch [Habitrol] 1 patch TRANSDERM DAILY 14 Days #14 patch traZODone HCL 150 mg PO HS PRN 30 Days #30 tablet PRN Reason: Insomnia Sertraline [Zoloft] 50 mg PO DAILY 30 Days #30 tab Ibuprofen [Motrin] 600 mg PO Q6HR PRN tab PRN Reason: Moderate Pain (Scale 4 To 6) Nicotine Gum (Polacrilex) [Nicorette] 2 mg BUCCAL Q4HR PRN 30 Days #180 pieceofgum PRN Reason: Nicotine Cravings Acetaminophen Tab [Tylenol] 650 mg PO Q4HR PRN tab PRN Reason: Mild Pain (Scale 1 To 3) OLANZapine [ZyPREXA] 10 mg PO HS 30 Days #30 tablet Discharge Medication List Acetaminophen Tab [Tylenol] 650 mg PO Q4HR PRN tab 10/16/24 [Rx] Ibuprofen [Motrin] 600 mg PO Q6HR PRN tab 10/16/24 [Rx] Nicotine 14Mg/24Hr Patch [Habitrol] 1 patch TRANSDERM DAILY 14 Days #14 patch 10/16/24 [Rx] Nicotine Gum (Polacrilex) [Nicorette] 2 mg BUCCAL Q4HR PRN 30 Days #180 pieceofgum 10/16/24 [Rx] OLANZapine [ZyPREXA] 10 mg PO HS 30 Days #30 tablet 10/16/24 [Rx] Sertraline [Zoloft] 50 mg PO DAILY 30 Days #30 tab 10/16/24 [Rx] traZODone HCL 150 mg PO HS PRN 30 Days #30 tablet 10/16/24 [Rx] Follow up Appointment(s)/Referral(s): [facility], [facility] [Other] - 10/16/24 2:00 pm (residential intake ) [facility] [NON-STAFF] - 1 Week Patient Instructions/Handouts: How to Stop Smoking (DC), Depression (DC) Activity/Diet/Wound Care/Special Instructions: [facility] Discharge Info Avoid the use of street drugs and alcohol. Take all medications as prescribed. When you are in need of refills on your medications, please contact your outpatient medical provider and/or outpatient psychiatrist. Please go to your scheduled outpatient appointments for aftercare treatment. If symptoms return or become worse, call the crisis line at or and/or visit the nearest emergency room for assistance. National Suicide and Crisis Lifeline - call or text 915 Discharge Disposition: OTHER INSTITUTION NOT DEFINED
== END 2024-10-16 13:26 | disposition other institution (70) | DRG 751 ==
LOC: EC 19:42 → 3MHU 10-12 13:18
PROVIDERS: ADMIT Psychiatry & Neurology Psychiatry; ATTEND Psychiatry & Neurology Psychiatry
DX: F32.A Depression, unspecified (principal); R45.850 Homicidal ideations; F60.2 Antisocial personality disorder; F14.10 Cocaine abuse, uncomplicated; F12.10 Cannabis abuse, uncomplicated; R45.851 Suicidal ideations; I10 Essential (primary) hypertension; F41.9 Anxiety disorder, unspecified; R44.0 Auditory hallucinations; R44.1 Visual hallucinations; R74.8 Abnormal levels of other serum enzymes; F17.200 Nicotine dependence, unspecified, uncomplicated; G47.00 Insomnia, unspecified; Z59.00 Homelessness unspecified
CPT/HCPCS: 36415; 80053; 80061; 80076; 80306; 81003; 82075; 83036; 84439; 84443; 85025; 87635; 96372; 99285